=== PATIENT | male | born 1950 | race Caucasian/White ===

== ENCOUNTER 2016-10-16 20:06 | Emergency (ER) | payer OTHER, BC ==
[~2016-10-16] VITALS: Ht 193 cm; Wt 117.9 kg
[2016-10-16] MEDS ORDERED: CHLO473M4 MM (20:49)
--- NOTE | 2016-10-16 20:49 | ED EENT ---
History of Present Illness General Chief Complaint: Foreign Body Stated Complaint: GLASS IN THE ROOF OF MOUTH Nursing Triage Note: TO ER WITH COMPLAINTS OF POSSIBLE GLASS IN HIS MOUTH. PATIENT REPORTS THAT HE WAS EATING AT [employer] IN [place], [place] AND ATE A PIECE OF GLASS IN HIS FOOD. PATIENT REPORTS THAT HE GOT SEVERAL SMALL PIECES OUT, BUT WANTS TO MAKE SURE THERE IS NOT ANY MORE. Source: patient Exam Limitations: no limitations History of Present Illness Time seen by provider: 20:45 Initial Comments To ER complaint by his with reports of a piece of glass stuck in his mouth. He was eating with her at [employer] in [place]. He was eating an order of fried apples when he felt something crunchy. He reached in his mouth to pull out a piece of glass. On the way home he was able to retrieve 2 smaller pieces from glass. He is unsure whether there is anything remaining or not. Timing/Duration: abrupt Severity: mild Location: mouth Allergies and Home Medications Allergies Coded Allergies: No Known Allergies (Verified Allergy, Unknown, 07/13/06) Review of Systems Constitutional: see HPI Eyes: No Symptoms Reported Ears: No Symptoms Reported Nose: no symptoms reported Mouth: see HPI Throat: no symptoms reported Respiratory: no symptoms reported Cardiovascular: no symptoms reported Musculoskeletal: no symptoms reported Skin: no symptoms reported Neurological: No Symptoms Reported Hematologic/Lymphatic: No Symptoms Reported Immunological/Allergic: no symptoms reported Past Ccwamnr-Nmmlul-Qlmcru Hx Patient Social History Alcohol Use: Occasionally Uses Recreational Drug Use: No Smoking Status: Never a Smoker 2nd Hand Smoke Exposure: No Recent Foreign Travel: No Contact w/Someone Who Travel: No Recent Infectious Disease Expo: No Recent Hopitalizations: Yes Immunizations Up To Date Tetanus Booster (TDap): More than 5yrs Surgeries HX Surgeries: Yes (BILAT KNEE REPALCEMENT) Respiratory Hx Respiratory Disorders: No Cardiovascular Hx Cardiac Disorders: No Neurological Hx Neurological Disorders: No Reproductive System Hx Reproductive Disorders: No Genitourinary Hx Genitourinary Disorders: No Gastrointestinal Hx Gastrointestinal Disorders: Yes Musculoskeletal Hx Musculoskeletal Disorders: No Endocrine Hx Endocrine Disorders: No HEENT HX ENT Disorders: No Psychosocial Hx Psychiatric Problems: No Blood Transfusions Hx Blood Disorders: No Physical Exam Vital Signs Vital Sign - Last 12Hours 10/16/16 20:40 Temp 98.2 Pulse 82 Resp 18 B/P (MAP) 142/76 Pulse Ox 97 O2 Delivery Room Air General Appearance: WD/WN, no apparent distress Eyes: bilateral eye EOMI, bilateral eye PERRL, bilateral eye normal inspection Ears: bilateral ear TM normal, bilateral ear auricle normal, bilateral ear canal normal Nose: normal inspection, No active bleeding Mouth/Throat: pharynx normal, No dental tenderness, other (there is a very small 1-2 mm superficial laceration to the roof of the mouth at the hard palate just posterior to tooth number 8 and 9.) Respiratory: no respiratory distress, no accessory muscle use Gastrointestinal: non tender, soft Neurologic/Psychiatric: alert, normal mood/affect, oriented x 3 Skin: normal color Progress/Results/Core Measures Results/Orders Vital Signs/I&O Vital Sign - Last 12Hours 10/16/16 20:40 Temp 98.2 Pulse 82 Resp 18 B/P (MAP) 142/76 Pulse Ox 97 O2 Delivery Room Air Blood Pressure Mean: 98 Departure Impression Impression: Primary Impression: Laceration of mouth Disposition: HOME, SELF-CARE Condition: Stable Departure-Patient Inst. Decision time for Depature: 20:48 Referrals: [facility] (PCP) Primary Care Physician Patient Instructions: NO INSTRUCTIONS GIVEN Add. Discharge Instructions: 1. Use the antibiotic mouthwash twice daily for the next 3 days 2. Return to ER for any concerns 3. Follow-up with your doctor or dentist next week for any persistent problems All discharge instructions reviewed with patient and/or family. Voiced understanding. Scripts Chlorhexidine Gluconate (Peridex) 473 Ml Mouthwash 30 ML MM BID, #473 ML Prov: HOLDEN BARRAZA APRN 10/16/16 Images Mouth/Nose 1 - HOLDEN BARRAZA APRN Oct 16, 2016 20:49
[2016-10-16 20:53] VITALS: BP 142/76
== END 2016-10-16 20:53 | disposition home or self-care (01) ==
LOC: EDUNIT# 20:06 → ER 20:09
DX: S01.512A Laceration without foreign body of oral cavity, initial encounter (principal); W25.XXXA Contact with sharp glass, initial encounter; Y92.511 Restaurant or cafe as the place of occurrence of the external cause; Y99.8 Other external cause status
CPT/HCPCS: 99282